=== PATIENT | male | born 1995 | race Caucasian/White ===

== ENCOUNTER 2017-03-09 13:21 | Emergency (ER) | payer OTHER ==
[~2017-03-09] VITALS: Ht 180.3 cm; Wt 61.4 kg
[2017-03-09 13:22] VITALS: BP 118/67
[2017-03-09] MEDS ORDERED: KEFL500C17 PO (14:25)
[2017-03-09] MEDS ORDERED: PRED20TA PO (14:25)
== END 2017-03-09 14:29 | disposition home or self-care (01) ==
LOC: M ED 13:21
DX: J02.9 Acute pharyngitis, unspecified (principal); K12.2 Cellulitis and abscess of mouth; F17.210 Nicotine dependence, cigarettes, uncomplicated